=== PATIENT | male | born 1965 ===

== ENCOUNTER 2020-12-11 11:47 | Emergency (ER) | payer OTHER ==
[2020-12-11 11:51] VITALS: BP 156/98
[2020-12-11 12:31] LABS: EOS # 0.1 (0.04-0.40); EOS % 0.8 % (0.0-4.0); HEMATOCRIT 39.4 % (42.0-52.0); HEMOGLOBIN 13.5 g/dL (13.5-18.0); LYMPH# 2.6 (1.50-4.00); MEAN CELL VOLUME 83 fl (78-100); MEAN CORPUSCULAR HEMOGLOBIN 29 pg (27-31); MEAN CORPUSCULAR HGB CONC 34 g/dL (33-37); MEAN PLATELET VOLUME 8.8 fl (7.4-10.4); MONO # 0.6 (0.20-0.80); NEU # 7.8 (1.40-6.50); PLATELET COUNT 271 K/mm3 (130-400); RED BLOOD COUNT 4.73 M/mm3 (4.20-5.60); RED CELL DISTRIBUTION WIDTH 12.9 % (11.5-14.5); WHITE BLOOD COUNT 11.1 K/mm3 (4.8-10.8)
[2020-12-11 12:39] LABS: ALBUMIN 4.2 g/dL (3.5-5.0); POTASSIUM 4.1 mmol/L (3.5-5.1); SODIUM 135 mmol/L (136-145)
[2020-12-11 12:40] LABS: CALCIUM 8.4 mg/dL (8.3-10.5)
[2020-12-11 12:41] LABS: GLUCOSE 234 mg/dL (75-110); TOTAL PROTEIN 7.7 g/dL (6.4-8.3)
[2020-12-11 12:42] LABS: CARBON DIOXIDE 23 mmol/L (22-29)
[2020-12-11 12:43] LABS: TOTAL BILIRUBIN 0.3 mg/dL (0.2-1.2)
[2020-12-11 12:47] LABS: AST-SGOT 17 U/L (5-34)
[2020-12-11] MEDS ORDERED: ZESTRIL10 M1 PO (12:47)
[2020-12-11] MEDS ORDERED: GLUCOPHAGE500 MG/TAB PO (12:47)
[2020-12-11 12:48] LABS: ALT/SGPT 19 U/L (0-55)
[2020-12-11] MEDS ORDERED: CLEOCIN HCL300 MG PO (12:56)
[2020-12-11] MEDS ORDERED: GLUCOTROL10 M2 PO (13:49)
[2020-12-11] MEDS ORDERED: LIPITOR20 M2 PO (13:50)
== END 2020-12-11 13:13 | disposition home or self-care (01) ==
LOC: ED 11:47
PROVIDERS: Nurse Practitioner
DX: L02.31 Cutaneous abscess of buttock (principal); E11.9 Type 2 diabetes mellitus without complications; I10 Essential (primary) hypertension; F17.220 Nicotine dependence, chewing tobacco, uncomplicated; Z79.84 Long term (current) use of oral hypoglycemic drugs
CPT/HCPCS: J7030